=== PATIENT | female | born 1970 | race Caucasian/White ===

== ENCOUNTER 2018-07-18 13:44 | Inpatient (IN) | payer OTHER, MEDICARE ==
[2018-07-18] MEDS ORDERED: LORAZEPAM 1 MG TABLET PO ONE (14:33)
--- NOTE | 2018-07-18 14:35 | ER Document Report ---
ED Medical Screen (RME) - General Chief Complaint: Shortness Of Breath Stated Complaint: SHORTNESS OF BREATH Time Seen by Provider: 07/18/18 14:24 TRAVEL OUTSIDE OF THE [place] IN LAST 30 DAYS: No - HPI Patient complains to provider of: Alcohol withdrawal Past Medical History - Social History Frequency of alcohol use: Heavy Drug Abuse: None Pulmonary Medical History: Reports: Hx Pneumonia Renal/ Medical History: Denies: Hx Peritoneal Dialysis Psychiatric Medical History: Reports: Hx Anxiety, Hx Depression, Hx Post Traumatic Stress Disorder Physical Exam - Vital signs Vitals: Temp Pulse Resp BP Pulse Ox 98.4 F 107 H 20 135/108 H 96 07/18/18 13:56 07/18/18 13:56 07/18/18 13:56 07/18/18 13:56 07/18/18 13:56 Course - Re-evaluation Re-evalutation: 07/18/18 14:34 47-year-old female presents for evaluation of detox as 1/5 a day history of alcoholism, has been doing such for several months has multiple attempts in the past at detox has had multiple episodes of withdrawal seizures in the past requiring hospitalization as well as intubation. She has had pneumonia as well. She has multiple medical problems in addition including psychiatric issues which she is uncertain of the exact diagnoses. She requests detox at this time. We will plan for [place] scoring, cardiac monitoring, administration of Ativan initially. We will plan for patient to be monitored and evaluated through the main emergency department. - Vital Signs Vital signs: Temp Pulse Resp BP Pulse Ox 98.4 F 107 H 20 135/108 H 96 07/18/18 13:56 07/18/18 13:56 07/18/18 13:56 07/18/18 13:56 07/18/18 13:56
[2018-07-18] MEDS ORDERED: NORMAL SALINE 1000 ML 1,000 ML IV ONE (15:57)
[2018-07-18] MEDS ORDERED: IPRATROPIUM/ALBUTEROL 0.5-2.5 MG/3 ML AMPUL NEB ONE ×2 (15:58→18:14)
[2018-07-18] MEDS ORDERED: METHYLPREDNISOLONE INJ 125 MG/2 ML SDV IV ONE (15:58)
[2018-07-18] MEDS ORDERED: MAGNESIUM SULFATE/D5W 1 GM/100 ML RTUPB IV ONE (15:58)
--- NOTE | 2018-07-18 15:59 | ER Document Report ---
ED General - General Chief Complaint: Shortness Of Breath Stated Complaint: SHORTNESS OF BREATH Time Seen by Provider: 07/18/18 14:24 Mode of Arrival: Ambulatory Information source: Patient Notes: This is a 47-year-old female with a history of bilateral pneumonia with hypoxic respiratory failure (January 2018 [place]), 1 pack per day smoking, alcohol abuse, who presents to the emergency room with chest pain while walking, shortness of breath and wheezing. Patient does states she feels like she is going into withdrawals because she stopped drinking. She states that she does have a history of alcohol withdrawal seizures. She also states that she does not want to drink anymore. TRAVEL OUTSIDE OF THE [place] IN LAST 30 DAYS: No - HPI Onset: Just prior to arrival Onset/Duration: Gradual Quality of pain: No pain Severity: None Pain Level: Denies Associated symptoms: Nonproductive cough, Shortness of breath. denies: Chest pain, Fever Exacerbated by: Denies Relieved by: Denies Similar symptoms previously: Yes Recently seen / treated by doctor: No - Related Data Allergies/Adverse Reactions: No Known Allergies Allergy (Verified 07/18/18 19:41) Past Medical History - General Information source: Patient - Social History Smoking Status: Current Every Day Smoker Cigarette use (# per day): Yes - 1 pack per day Chew tobacco use (# tins/day): No Smoking Education Provided: No Frequency of alcohol use: Heavy Drug Abuse: None Lives with: Family Family History: Reviewed & Not Pertinent Patient has suicidal ideation: No Patient has homicidal ideation: No Pulmonary Medical History: Reports: Hx Pneumonia Renal/ Medical History: Denies: Hx Peritoneal Dialysis Psychiatric Medical History: Reports: Hx Anxiety, Hx Depression, Hx Post Traumatic Stress Disorder Past Surgical History: Reports: Other - Foot surgery (bunions) Review of Systems - Review of Systems Constitutional: denies: Chills, Fever EENT: denies: Nose discharge, Sinus pressure, Sinus discharge Cardiovascular: denies: Chest pain, Palpitations, Heart racing Respiratory: Short of breath, Wheezing Gastrointestinal: denies: Abdomen distended, Abdominal pain, Vomiting Genitourinary: No symptoms reported Female Genitourinary: No symptoms reported Musculoskeletal: No symptoms reported Skin: No symptoms reported Hematologic/Lymphatic: No symptoms reported Neurological/Psychological: Anxiety, Other - Tremulousness. denies: Confusion, Paralysis, Seizure Physical Exam - Vital signs Vitals: Temp Pulse Resp BP Pulse Ox 98.4 F 107 H 20 135/108 H 96 07/18/18 13:56 07/18/18 13:56 07/18/18 13:56 07/18/18 13:56 07/18/18 13:56 Notes: Physical exam: GENERAL: 47-year-old female, alert and oriented 3, bilateral wheezing, he is tremulous and hypertensive (diastolic 108), tachycardic (107) HEAD: Atraumatic, normocephalic. EYES: Pupils equal round and reactive to light, extraocular movements intact, sclera anicteric, conjunctiva are normal. ENT: TMs normal, nares patent, oropharynx clear without exudates. Moist mucous membranes. NECK: Normal range of motion, supple without obvious mass or JVD. LUNGS: Bilateral wheezing with accessory muscle use HEART: Regular rate and rhythm without murmurs, rubs or gallops. ABDOMEN: Soft, normoactive bowel sounds. No tenderness to palpation. No guarding, no rebound. No masses appreciated. EXTREMITIES: Normal range of motion, no pitting or edema. No clubbing or cyanosis. NEUROLOGICAL: She is tremulous. Cranial nerves II through XII grossly intact. Normal speech, moving all extremities. PSYCH: Normal mood, normal affect. SKIN: Warm, Dry, normal turgor, no rashes or lesions noted. Course - Vital Signs Vital signs: Temp Pulse Resp BP Pulse Ox 98.4 F 107 H 19 126/102 H 94 07/18/18 13:56 07/18/18 13:56 07/18/18 22:01 07/18/18 22:01 07/18/18 22:01 - Laboratory Result Diagrams: 07/18/18 16:29 07/18/18 16:29 Laboratory results interpreted by me: 07/18/18 07/18/18 07/18/18 16:29 16:29 19:10 Hgb 11.4 L Hct 35.2 L MCV 74 L MCH 24.0 L RDW 18.6 H Potassium 3.2 L Glucose 57 L AST 75 H Total Protein 8.4 H Urine Ketones 20 H Urine Blood MODERATE H Salicylates < 1.0 L Acetaminophen < 10 L - Diagnostic Test Radiology reviewed: Image reviewed, Reports reviewed - Tonic interstitial changes. No obvious infiltrate. Discharge - Discharge Clinical Impression: Acute alcohol withdrawal, COPD exacerbation Condition: Stable Disposition: HOME, SELF-CARE Admitting Provider: Hospitalist [place] [facility] Admitted: Telemetry
[2018-07-18] MEDS ORDERED: ACETAMINOPHEN 325 MG TABLET PO ONE (16:21)
[2018-07-18] MEDS ORDERED: LORAZEPAM INJ 2 MG/1 ML VIAL IV ONE ×2 (16:21→20:51)
[2018-07-18 16:59] LABS: ABSOLUTE BASOPHILS # (AUTO) 0.1 10^3/uL (0.0-0.2); ABSOLUTE LYMPHOCYTES (AUTO) 1.9 10^3/uL (0.5-4.7); ABSOLUTE MONOCYTES (AUTO) 0.6 10^3/uL (0.1-1.4); ABSOLUTE NEUT (AUTO) 7.9 10^3/uL (1.7-8.2); BASOPHILS % (AUTO) 1.3 % (0-2); EOSINOPHILS % (AUTO) 0.4 % (0-6); HEMATOCRIT 35.2 % (36.0-47.0); HEMOGLOBIN 11.4 g/dL (12.0-15.5); LYMPHOCYTES % (AUTO) 17.7 % (13-45); MEAN CORPUSCULAR HGB CONC 32.4 g/dL (32.0-36.0); MEAN CORPUSCULAR VOLUME 74 fl (80-97); MONOCYTES % (AUTO) 5.7 % (3-13); PLATELET COUNT 369 10^3/uL (150-450); RED BLOOD COUNT 4.75 10^6/uL (3.72-5.28); RED CELL DISTRIBUTION WIDTH 18.6 % (11.5-14.0); SEGMENTED NEUTROPHILS % (AUTO) 74.9 % (42-78); TOTAL CELLS COUNTED % (AUTO) 100 %; WHITE BLOOD COUNT 10.5 10^3/uL (4.0-10.5)
[2018-07-18 17:17] LABS: ALANINE AMINOTRANSFERASE 39 U/L (9-52); ALBUMIN 4.3 g/dL (3.5-5.0); ALCOHOL 58 mg/dL (NONE DETECTED); ALKALINE PHOSPHATASE 97 U/L (38-126); ANION GAP 18 (5-19); ASPARTATE AMINO TRANSFERASE 75 U/L (14-36); BILIRUBIN,DIRECT 0.3 mg/dL (0.0-0.4); BILIRUBIN,TOTAL 0.3 mg/dL (0.2-1.3); BLOOD UREA NITROGEN 13 mg/dL (7-20); CARBON DIOXIDE 23 mmol/L (22-30); CHLORIDE 100 mmol/L (98-107); CREATINE KINASE 33 U/L (30-135); GLUCOSE 57 mg/dL (75-110); POTASSIUM 3.2 mmol/L (3.6-5.0); TOTAL PROTEIN 8.4 g/dL (6.3-8.2)
[2018-07-18 17:20] LABS: ACETAMINOPHEN < 10 ug/mL (10-30); SALICYLATE < 1.0 mg/dL (2.0-20.0)
[2018-07-18 17:26] LABS: CREATINE KINASE MB 0.85 ng/mL (<4.55)
[2018-07-18 17:30] LABS: TROPONIN I < 0.012 ng/mL
[2018-07-18] MEDS ORDERED: POTASSIUM CHLORIDE 20 MEQ/15 ML UDCUP PO ONE (17:33)
[2018-07-18] MEDS ORDERED: NICOTINE 14 MG/24 HR PATCH.TD24 TD ONE (20:06)
[2018-07-18] MEDS ORDERED: PROPRANOLOL HCL 20 MG TABLET PO ONE (20:06)
[2018-07-18] MEDS ORDERED: SERTRALINE HCL 50 MG TABLET PO ONE (20:06)
[2018-07-18] MEDS ORDERED: GABAPENTIN 300 MG CAPSULE PO ONE (20:06)
[2018-07-18 20:35] LABS: APPEARANCE,URINE TURBID; BILIRUBIN,URINE NEGATIVE (NEGATIVE); COLOR,URINE YELLOW; GLUCOSE, URINE NEGATIVE (NEGATIVE); KETONES,URINE 20 mg/dL (NEGATIVE); LEUKOCYTE ESTERASE,URINE NEGATIVE (NEGATIVE); NITRITE,URINE NEGATIVE (NEGATIVE); PROTEIN,URINE NEGATIVE (NEGATIVE); URINE SPECIFIC GRAVITY 1.024; UROBILINOGEN,URINE NEGATIVE mg/dL (<2.0)
--- NOTE | 2018-07-18 20:41 | RADIOLOGY REPORT (SQ) ---
EXAM DESCRIPTION: CHEST SINGLE VIEW COMPLETED DATE/TIME: 07/18/2018 8:22 pm REASON FOR STUDY: sob COMPARISON: None. EXAM PARAMETERS: NUMBER OF VIEWS: One view. TECHNIQUE: Single frontal radiographic view of the chest acquired. RADIATION DOSE: NA LIMITATIONS: None. FINDINGS: LUNGS AND PLEURA: Prominent interstitial markings particularly in the lower lobes. No lob ar infiltrates, masses or pneumothorax. No pleural effusion. MEDIASTINUM AND HILAR STRUCTURES: No masses. Contour normal. HEART AND VASCULAR STRUCTURES: Heart normal in size. Normal vasculature. BONES: No acute findings. HARDWARE: None in the chest. OTHER: No other significant finding. IMPRESSION: PROMINENT INTERSTITIAL MARKINGS PROBABLY DUE TO SCARRING ALTHOUGH A COMPONENT OF INTERST ITIAL EDEMA MAY BE PRESENT. TECHNICAL DOCUMENTATION: JOB ID: [id number] [employer]formerly [email or web address])- All Rights Reserved Reading location - IP/workstation name: [email or web address]
--- NOTE | 2018-07-18 20:42 | EKG REPORT ---
SEVERITY:- BORDERLINE ECG - SINUS RHYTHM PROBABLE LEFT ATRIAL ABNORMALITY : Confirmed by: Cayla Valdovinos 18-Jul-2018 17:41:40
[2018-07-18 20:49] LABS: URINE AMPHETAMINES SCREEN NEGATIVE; URINE BARBITURATES SCREEN NEGATIVE; URINE BENZODIAZEPINES SCREEN NEGATIVE; URINE COCAINE SCREEN NEGATIVE; URINE MARIJUANA (THC) SCREEN UNCONFIRMED POSITIVE; URINE METHADONE SCREEN NEGATIVE; URINE PHENCYCLIDINE SCREEN NEGATIVE
[2018-07-18] MEDS ORDERED: AZITHROMYCIN 250 MG TABLET PO ONE (22:00)
[2018-07-18] MEDS: PANTOPRAZOLE SODIUM 40 MG VIAL IV SCH (23:43)
[2018-07-18] MEDS: THIAMINE HCL 500 MG in NORMAL SALINE 250 ML IV SCH (23:44)
[2018-07-19] MEDS: THIAMINE HCL 500 MG in NORMAL SALINE 250 ML IV SCH ×3 (06:05→22:42)
[2018-07-19] MEDS: POTASSI CL 20 MEQ/NS 1L 1,000 ML IV PRN ×2 (06:15→19:02)
[2018-07-19] MEDS: LORAZEPAM INJ 2 MG/1 ML VIAL IV PRN ×4 (06:15→19:54)
--- NOTE | 2018-07-19 06:16 | PDOC H&P ---
History of Present Illness Admission Date/PCP: 07/18/18 21:45 RAHUL LAUGHLIN MD Patient complains of: alc withdrawal History of Present Illness: SHAMIKA SINGLETON is a 47 year old female presents to the emergency department secondary to alcohol withdrawal. Patient has no past medical history of substance abuse, smokes 1 pack cigarettes per day. Presented to the emergency department initially with shortness of breath and wheezing. Has alcoholic beverage was 1 day ago. Patient has a known past medical history of reactive airway disease and a history of pneumonia. Also has a history of alcohol withdrawal seizures. Patient acknowledges that she wants to quit drinking. Past Medical History Pulmonary Medical History: Reports: Pneumonia Psychiatric Medical History: Reports: Alcohol Dependency, Depression, Post Traumatic Stress Disorder Past Surgical History Past Surgical History: Reports: Other - Foot surgery (bunions) Social History Information Source: Patient Lives with: Family Smoking Status: Current Every Day Smoker Frequency of Alcohol Use: Heavy Hx Recreational Drug Use: No Hx Prescription Drug Abuse: No Family History Family History: Reviewed & Not Pertinent Parental Family History Reviewed: Yes Children Family History Reviewed: Yes Sibling(s) Family History Reviewed.: Yes Medication/Allergy Allergies/Adverse Reactions: No Known Allergies Allergy (Verified 07/18/18 19:41) Review of Systems Constitutional: ABSENT: chills, fever(s), headache(s), weight gain, weight loss Eyes: ABSENT: visual disturbances Ears: ABSENT: hearing changes Cardiovascular: ABSENT: chest pain, dyspnea on exertion, edema, orthropnea, palpitations Respiratory: PRESENT: dyspnea. ABSENT: cough, hemoptysis Gastrointestinal: ABSENT: abdominal pain, constipation, diarrhea, hematemesis, hematochezia, nausea, vomiting Genitourinary: ABSENT: dysuria, hematuria Musculoskeletal: ABSENT: joint swelling Integumentary: ABSENT: rash, wounds Neurological: PRESENT: tremor(s). ABSENT: abnormal gait, abnormal speech, confusion, dizziness, focal weakness, syncope Psychiatric: ABSENT: anxiety, depression, homidical ideation, suicidal ideation Endocrine: ABSENT: cold intolerance, heat intolerance, polydipsia, polyuria Hematologic/Lymphatic: ABSENT: easy bleeding, easy bruising Physical Exam Vital Signs: Temp Pulse Resp BP Pulse Ox 98.4 F 107 H 19 128/77 H 92 07/18/18 13:56 07/18/18 13:56 07/19/18 05:01 07/19/18 05:01 07/19/18 05:01 Intake & Output 07/17/18 07/18/18 07/19/18 06:59 06:59 06:59 Intake Total 255 Balance 255 General appearance: PRESENT: no acute distress, well-developed, well-nourished Head exam: PRESENT: atraumatic, normocephalic Eye exam: PRESENT: conjunctiva pink, EOMI, PERRLA. ABSENT: scleral icterus Ear exam: PRESENT: normal external ear exam Mouth exam: PRESENT: moist, tongue midline Neck exam: ABSENT: carotid bruit, JVD, lymphadenopathy, thyromegaly Respiratory exam: PRESENT: clear to auscultation camilo. ABSENT: rales, rhonchi, wheezes Cardiovascular exam: PRESENT: RRR. ABSENT: diastolic murmur, rubs, systolic murmur Pulses: PRESENT: normal dorsalis pedis pul Vascular exam: PRESENT: normal capillary refill GI/Abdominal exam: PRESENT: normal bowel sounds, soft. ABSENT: distended, guarding, mass, organolmegaly, rebound, tenderness Rectal exam: PRESENT: deferred Extremities exam: PRESENT: full ROM. ABSENT: calf tenderness, clubbing, pedal edema Neurological exam: PRESENT: alert, awake, oriented to person, oriented to place , oriented to time, oriented to situation, CN II-XII grossly intact. ABSENT: motor sensory deficit Psychiatric exam: PRESENT: appropriate affect, normal mood. ABSENT: homicidal ideation, suicidal ideation Skin exam: PRESENT: dry, intact, warm. ABSENT: cyanosis, rash Results Impressions: Chest X-Ray 07/18/18 20:05 IMPRESSION: PROMINENT INTERSTITIAL MARKINGS PROBABLY DUE TO SCARRING ALTHOUGH A COMPONENT OF INTERSTITIAL EDEMA MAY BE PRESENT. Assessment & Plan - Diagnosis (1) Alcohol withdrawal Qualifiers: Complication of substance-induced condition: with unspecified complication Qualified Code(s): F10.239 - Alcohol dependence with withdrawal, unspecified Is this a current diagnosis for this admission?: Yes (2) Acute bronchitis Qualifiers: Bronchitis organism: unspecified organism Qualified Code(s): J20.9 - Acute bronchitis, unspecified Is this a current diagnosis for this admission?: Yes (3) Tobacco abuse Is this a current diagnosis for this admission?: Yes Plan: Patient to be admitted for alcohol withdrawal. Will monitor on telemetry. Continue with alcohol withdrawal protocol, Ativan 2 mg IV to be given as needed. Patient on azithromycin secondary to underlying acute bronchitis. Continue with Solu-Medrol 40 mg IV every 8 hours, DuoNeb's every 3 as needed. Tylenol, ibuprofen as needed pain. Smoking cessation highly encouraged. We will continue to monitor patient closely.
[2018-07-19 06:47] LABS: ALANINE AMINOTRANSFERASE 41 U/L (9-52); ALBUMIN 4.3 g/dL (3.5-5.0); ALKALINE PHOSPHATASE 96 U/L (38-126); ANION GAP 12 (5-19); ASPARTATE AMINO TRANSFERASE 45 U/L (14-36); BILIRUBIN,DIRECT 0.3 mg/dL (0.0-0.4); BILIRUBIN,TOTAL 0.5 mg/dL (0.2-1.3); BLOOD UREA NITROGEN 14 mg/dL (7-20); CALCIUM 9.6 mg/dL (8.4-10.2); CARBON DIOXIDE 24 mmol/L (22-30); CHLORIDE 104 mmol/L (98-107); GLUCOSE 110 mg/dL (75-110); PHOSPHORUS 3.1 mg/dL (2.5-4.5); SODIUM 140.2 mmol/L (137-145); TOTAL PROTEIN 8.2 g/dL (6.3-8.2)
[2018-07-19] MEDS ORDERED: METHYLPREDNISOLONE INJ 40 MG/1 ML SDV IV ONE (07:00)
[2018-07-19 07:09] LABS: POTASSIUM 4.9 mmol/L (3.6-5.0)
[2018-07-19 07:30] LABS: ABSOLUTE BASOPHILS # (AUTO) 0.1 10^3/uL (0.0-0.2); ABSOLUTE LYMPHOCYTES (AUTO) 1.2 10^3/uL (0.5-4.7); ABSOLUTE MONOCYTES (AUTO) 0.3 10^3/uL (0.1-1.4); ABSOLUTE NEUT (AUTO) 5.4 10^3/uL (1.7-8.2); BASOPHILS % (AUTO) 0.9 % (0-2); HEMATOCRIT 37.5 % (36.0-47.0); HEMOGLOBIN 12.4 g/dL (12.0-15.5); LYMPHOCYTES % (AUTO) 17.5 % (13-45); MEAN CORPUSCULAR HEMOGLOBIN 24.2 pg (27.0-33.4); MEAN CORPUSCULAR HGB CONC 33.2 g/dL (32.0-36.0); MEAN CORPUSCULAR VOLUME 73 fl (80-97); MONOCYTES % (AUTO) 4.9 % (3-13); PLATELET COUNT 421 10^3/uL (150-450); RED BLOOD COUNT 5.14 10^6/uL (3.72-5.28); RED CELL DISTRIBUTION WIDTH 18.3 % (11.5-14.0); SEGMENTED NEUTROPHILS % (AUTO) 76.7 % (42-78); TOTAL CELLS COUNTED % (AUTO) 100 %
[2018-07-19] MEDS: IPRATROPIUM/ALBUTEROL 0.5-2.5 MG/3 ML AMPUL NEB PRN ×2 (07:52→19:40)
[2018-07-19] MEDS: ACETAMINOPHEN 325 MG TABLET PO PRN (07:52)
[2018-07-19] MEDS ORDERED: NICOTINE 14 MG/24 HR PATCH.TD24 TD ONE (09:54)
[2018-07-19] MEDS: ENOXAPARIN SODIUM INJ 40 MG/0.4 ML DISP.SYRIN SUBCUT SCH (11:11)
[2018-07-19] MEDS: PANTOPRAZOLE SODIUM 40 MG VIAL IV SCH ×2 (11:11→22:40)
[2018-07-19] MEDS ORDERED: PROPRANOLOL HCL 20 MG TABLET PO PRN (13:42)
[2018-07-19] MEDS ORDERED: MIRTAZAPINE PO SCH (13:45)
[2018-07-19] MEDS ORDERED: (PENDING PHARMACY ID) (Sertraline Hcl [Zoloft] 200 MG) PO SCH (13:45)
[2018-07-19] MEDS: HYDROXYZINE PAMOATE 50 MG CAPSULE PO PRN (15:34)
[2018-07-19] MEDS: METHYLPREDNISOLONE INJ 40 MG/1 ML SDV IV SCH ×2 (15:34→22:40)
[2018-07-19] MEDS: TOPIRAMATE 25 MG TABLET PO SCH ×2 (18:46→22:46)
[2018-07-19] MEDS: SERTRALINE HCL 50 MG TABLET PO SCH (18:46)
[2018-07-19] MEDS: GABAPENTIN 400 MG CAPSULE PO SCH (19:00)
[2018-07-19] MEDS ORDERED: TOPIRAMATE 25 MG TABLET ONE (21:37)
[2018-07-19] MEDS ORDERED: THIAMINE HCL INJ 200 MG/2 ML VIAL ONE ×2 (21:38→22:07)
[2018-07-19] MEDS: AZITHROMYCIN 250 MG TABLET PO SCH (22:45)
[2018-07-19] MEDS: MELATONIN 3 MG TABLET PO SCH (22:46)
[2018-07-20] MEDS: GABAPENTIN 400 MG CAPSULE PO SCH ×4 (01:05→17:40)
[2018-07-20] MEDS: LORAZEPAM INJ 2 MG/1 ML VIAL IV PRN ×4 (03:52→20:48)
[2018-07-20] MEDS: POTASSI CL 20 MEQ/NS 1L 1,000 ML IV PRN (04:29)
--- NOTE | 2018-07-20 05:49 | PDOC PROGRESS REPORT ---
Subjective Progress Note for:: 07/19/18 Subjective:: The patient is tremulous, but feels her breathing has improved. Reason For Visit: ALCOHOL WITHDRAWAL, COPD EXA Physical Exam Vital Signs: Temp Pulse Resp BP Pulse Ox 97.6 F 56 L 17 124/67 99 07/20/18 03:45 07/20/18 03:45 07/20/18 03:45 07/20/18 03:45 07/20/18 03:45 Intake & Output 07/18/18 07/19/18 07/20/18 06:59 06:59 06:59 Intake Total 255 3602 Output Total 850 Balance 255 2752 Weight 88.3 kg General appearance: PRESENT: no acute distress, cooperative Respiratory exam: PRESENT: rhonchi, wheezes, other - No increased work of breathing.. ABSENT: rales Cardiovascular exam: PRESENT: RRR. ABSENT: gallop, rubs, systolic murmur Pulses: PRESENT: normal radial pulses, normal dorsalis pedis pul GI/Abdominal exam: PRESENT: normal bowel sounds, soft. ABSENT: hernia, mass, tenderness Extremities exam: ABSENT: clubbing, full ROM, pedal edema, tenderness Musculoskeletal exam: ABSENT: deformity, dislocation, tenderness Neurological exam: PRESENT: alert, awake, oriented to person, oriented to place , oriented to time, oriented to situation, CN II-XII grossly intact, other - Tremulous. ABSENT: motor sensory deficit Psychiatric exam: PRESENT: anxious Skin exam: PRESENT: dry, intact, warm Results Laboratory Results: 07/19/18 06:15 07/19/18 06:15 07/19/18 07/19/18 06:15 06:15 WBC 7.0 RBC 5.14 Hgb 12.4 Hct 37.5 MCV 73 L MCH 24.2 L MCHC 33.2 RDW 18.3 H Plt Count 421 Seg Neutrophils % 76.7 Lymphocytes % 17.5 Monocytes % 4.9 Eosinophils % 0.0 Basophils % 0.9 Absolute Neutrophils 5.4 Absolute Lymphocytes 1.2 Absolute Monocytes 0.3 Absolute Eosinophils 0.0 Absolute Basophils 0.1 Sodium 140.2 Potassium 4.9 D Chloride 104 Carbon Dioxide 24 Anion Gap 12 BUN 14 Creatinine 0.55 Est GFR ( Amer) > 60 Est GFR (Non-Af Amer) > 60 Glucose 110 Calcium 9.6 Phosphorus 3.1 Magnesium 2.1 Total Bilirubin 0.5 AST 45 H ALT 41 Alkaline Phosphatase 96 Total Protein 8.2 Albumin 4.3 Impressions: Chest X-Ray 07/18/18 20:05 IMPRESSION: PROMINENT INTERSTITIAL MARKINGS PROBABLY DUE TO SCARRING ALTHOUGH A COMPONENT OF INTERSTITIAL EDEMA MAY BE PRESENT. Assessment & Plan - Diagnosis (1) Acute bronchitis Qualifiers: Bronchitis organism: unspecified organism Qualified Code(s): J20.9 - Acute bronchitis, unspecified Is this a current diagnosis for this admission?: Yes (2) Alcohol withdrawal Qualifiers: Complication of substance-induced condition: with unspecified complication Qualified Code(s): F10.239 - Alcohol dependence with withdrawal, unspecified Is this a current diagnosis for this admission?: Yes (3) Tobacco abuse Is this a current diagnosis for this admission?: Yes - Time Time Spent with patient: 25-34 minutes Medications reviewed and adjusted accordingly: Yes
[2018-07-20] MEDS: METHYLPREDNISOLONE INJ 40 MG/1 ML SDV IV SCH ×3 (05:59→22:07)
[2018-07-20] MEDS ORDERED: THIAMINE HCL 500 MG in NORMAL SALINE 250 ML IV SCH (08:00)
[2018-07-20] MEDS: PANTOPRAZOLE SODIUM 40 MG VIAL IV SCH ×2 (10:10→22:07)
[2018-07-20] MEDS: ENOXAPARIN SODIUM INJ 40 MG/0.4 ML DISP.SYRIN SUBCUT SCH (10:11)
[2018-07-20] MEDS: THIAMINE HCL 500 MG in NORMAL SALINE 250 ML IV SCH ×2 (10:20→17:40)
[2018-07-20] MEDS: MIRTAZAPINE 15 MG TABLET PO SCH (10:34)
[2018-07-20] MEDS: SERTRALINE HCL 50 MG TABLET PO SCH (10:46)
[2018-07-20] MEDS ORDERED: TOPIRAMATE 25 MG TABLET PO ONE (11:30)
[2018-07-20] MEDS: NICOTINE 21 MG/24 HR PATCH.TD24 TD SCH (14:19)
[2018-07-20] MEDS: TOPIRAMATE 25 MG TABLET PO SCH ×2 (15:59→22:14)
[2018-07-20] MEDS: ACETAMINOPHEN 325 MG TABLET PO PRN (16:04)
--- NOTE | 2018-07-20 17:18 | PDOC PROGRESS REPORT ---
Subjective Progress Note for:: 07/20/18 Subjective:: The patient is resting quietly. No new complaints. Audible wheezes upon entering the room. Reason For Visit: ALCOHOL WITHDRAWAL, COPD EXA Physical Exam Vital Signs: Temp Pulse Resp BP Pulse Ox 98.2 F 84 18 121/95 H 97 07/20/18 16:00 07/20/18 16:00 07/20/18 16:00 07/20/18 16:00 07/20/18 16:00 Intake & Output 07/19/18 07/20/18 07/21/18 06:59 06:59 06:59 Intake Total 255 3602 Output Total 850 Balance 255 2752 Weight 88.3 kg General appearance: PRESENT: no acute distress, other - The patient is somnolent. Respiratory exam: PRESENT: rhonchi, wheezes, other - No increased work of breathing.. ABSENT: rales Cardiovascular exam: PRESENT: RRR, other - No lateral PMI. No thrills.. ABSENT : gallop, rubs, systolic murmur Pulses: PRESENT: normal dorsalis pedis pul GI/Abdominal exam: PRESENT: normal bowel sounds, soft. ABSENT: distended, hernia, mass, tenderness Extremities exam: ABSENT: clubbing, pedal edema, tenderness Musculoskeletal exam: PRESENT: normal inspection. ABSENT: deformity, dislocation, tenderness Neurological exam: PRESENT: alert, other - Sleeping. Not awakened. Skin exam: PRESENT: dry, intact, warm Results Laboratory Results: 07/19/18 06:15 07/19/18 06:15 Impressions: Chest X-Ray 07/18/18 20:05 IMPRESSION: PROMINENT INTERSTITIAL MARKINGS PROBABLY DUE TO SCARRING ALTHOUGH A COMPONENT OF INTERSTITIAL EDEMA MAY BE PRESENT. Assessment & Plan - Diagnosis (1) Acute bronchitis Qualifiers: Bronchitis organism: unspecified organism Qualified Code(s): J20.9 - Acute bronchitis, unspecified Is this a current diagnosis for this admission?: Yes Plan: IV antibiotics, steroids, and nebulizers. (2) Alcohol withdrawal Qualifiers: Complication of substance-induced condition: with unspecified complication Qualified Code(s): F10.239 - Alcohol dependence with withdrawal, unspecified Is this a current diagnosis for this admission?: Yes Plan: ETOH withdrawal protocol. (3) Tobacco abuse Is this a current diagnosis for this admission?: Yes Plan: Nicotine patch. Will consell cessation when patient is able to have this conversation. - Time Time Spent with patient: 25-34 minutes Medications reviewed and adjusted accordingly: Yes
[2018-07-20] MEDS: OXYCODONE-ACETAMINOPHEN 5-325 MG TABLET PO PRN (17:46)
[2018-07-20] MEDS: PROMETHAZINE HCL INJ 25 MG/1 ML VIAL IV PRN (20:48)
[2018-07-20] MEDS ORDERED: MORPHINE SULFATE 10 MG/ML INJ IV ONE (21:00)
[2018-07-20] MEDS: AZITHROMYCIN 250 MG TABLET PO SCH (22:08)
[2018-07-20] MEDS: MELATONIN 3 MG TABLET PO SCH (22:14)
[2018-07-20] MEDS: HYDROXYZINE PAMOATE 50 MG CAPSULE PO PRN (22:15)
[2018-07-21] MEDS: GABAPENTIN 400 MG CAPSULE PO SCH ×5 (00:48→23:54)
[2018-07-21] MEDS: LORAZEPAM INJ 2 MG/1 ML VIAL IV PRN ×5 (00:49→23:54)
[2018-07-21] MEDS: OXYCODONE-ACETAMINOPHEN 5-325 MG TABLET PO PRN ×4 (00:55→23:54)
[2018-07-21] MEDS: THIAMINE HCL 500 MG in NORMAL SALINE 250 ML IV SCH ×3 (03:05→18:49)
[2018-07-21 06:10] LABS: ANION GAP 13 (5-19); BLOOD UREA NITROGEN 13 mg/dL (7-20); CALCIUM 9.1 mg/dL (8.4-10.2); CARBON DIOXIDE 23 mmol/L (22-30); CHLORIDE 105 mmol/L (98-107); GLUCOSE 134 mg/dL (75-110); POTASSIUM 4.5 mmol/L (3.6-5.0); SODIUM 141.3 mmol/L (137-145)
[2018-07-21] MEDS: METHYLPREDNISOLONE INJ 40 MG/1 ML SDV IV SCH ×3 (06:50→22:49)
[2018-07-21] MEDS: PROMETHAZINE HCL INJ 25 MG/1 ML VIAL IV PRN ×3 (08:07→23:54)
[2018-07-21] MEDS ORDERED: MORPHINE SULFATE 10 MG/ML INJ IV ONE (09:08)
[2018-07-21] MEDS ORDERED: PROPRANOLOL HCL 20 MG TABLET PO PRN ×2 (09:08→09:34)
[2018-07-21] MEDS: PANTOPRAZOLE SODIUM 40 MG VIAL IV SCH (09:40)
[2018-07-21] MEDS: MIRTAZAPINE 15 MG TABLET PO SCH (09:43)
[2018-07-21] MEDS: TOPIRAMATE 25 MG TABLET PO SCH ×2 (09:43→22:50)
[2018-07-21] MEDS: ENOXAPARIN SODIUM INJ 40 MG/0.4 ML DISP.SYRIN SUBCUT SCH (09:44)
[2018-07-21] MEDS: SERTRALINE HCL 50 MG TABLET PO SCH (09:50)
[2018-07-21] MEDS ORDERED: HYDRALAZINE HCL 25 MG TABLET PO PRN (10:35)
[2018-07-21] MEDS: NICOTINE 21 MG/24 HR PATCH.TD24 TD SCH (13:35)
[2018-07-21] MEDS: LANSOPRAZOLE 30 MG TAB.RAP.DR PO SCH (17:04)
[2018-07-21] MEDS: AZITHROMYCIN 250 MG TABLET PO SCH (22:49)
[2018-07-21] MEDS: MELATONIN 3 MG TABLET PO SCH (22:49)
[2018-07-22] MEDS: THIAMINE HCL 500 MG in NORMAL SALINE 250 ML IV SCH ×2 (02:16→09:52)
[2018-07-22] MEDS: LORAZEPAM INJ 2 MG/1 ML VIAL IV PRN ×3 (05:57→18:00)
[2018-07-22] MEDS: METHYLPREDNISOLONE INJ 40 MG/1 ML SDV IV SCH (05:57)
[2018-07-22] MEDS: GABAPENTIN 400 MG CAPSULE PO SCH ×2 (05:58→13:26)
[2018-07-22] MEDS: OXYCODONE-ACETAMINOPHEN 5-325 MG TABLET PO PRN ×3 (05:58→18:00)
--- NOTE | 2018-07-22 06:57 | PDOC PROGRESS REPORT ---
Subjective Progress Note for:: 07/21/18 Subjective:: The patient is resting quietly. No new complaints. Reason For Visit: ALCOHOL WITHDRAWAL, COPD EXA Physical Exam Vital Signs: Temp Pulse Resp BP Pulse Ox 98.6 F 64 20 121/72 99 07/22/18 02:30 07/22/18 02:30 07/22/18 02:30 07/22/18 02:30 07/22/18 02:30 Intake & Output 07/20/18 07/21/18 07/22/18 06:59 06:59 06:59 Intake Total 3602 2407 3800 Output Total 850 1610 Balance 2752 797 3800 Weight 88.3 kg 94.3 kg 96.3 kg Results Laboratory Results: 07/19/18 06:15 07/21/18 04:00 Impressions: Chest X-Ray 07/18/18 20:05 IMPRESSION: PROMINENT INTERSTITIAL MARKINGS PROBABLY DUE TO SCARRING ALTHOUGH A COMPONENT OF INTERSTITIAL EDEMA MAY BE PRESENT. Assessment & Plan - Diagnosis (1) Acute bronchitis Qualifiers: Bronchitis organism: unspecified organism Qualified Code(s): J20.9 - Acute bronchitis, unspecified Is this a current diagnosis for this admission?: Yes Plan: IV antibiotics, steroids, and nebulizers. Improving. (2) Alcohol withdrawal Qualifiers: Complication of substance-induced condition: with unspecified complication Qualified Code(s): F10.239 - Alcohol dependence with withdrawal, unspecified Is this a current diagnosis for this admission?: Yes Plan: ETOH withdrawal protocol. Pt is more calm today. (3) Tobacco abuse Is this a current diagnosis for this admission?: Yes - Time Time Spent with patient: 25-34 minutes Anticipated discharge: Home
[2018-07-22] MEDS: LANSOPRAZOLE 30 MG TAB.RAP.DR PO SCH (08:44)
[2018-07-22] MEDS: ENOXAPARIN SODIUM INJ 40 MG/0.4 ML DISP.SYRIN SUBCUT SCH (09:51)
[2018-07-22] MEDS: SERTRALINE HCL 50 MG TABLET PO SCH (09:51)
[2018-07-22] MEDS: ACETAMINOPHEN 325 MG TABLET PO PRN (09:52)
[2018-07-22] MEDS: MIRTAZAPINE 15 MG TABLET PO SCH (09:52)
[2018-07-22] MEDS: TOPIRAMATE 25 MG TABLET PO SCH (13:26)
[2018-07-22] MEDS: NICOTINE 21 MG/24 HR PATCH.TD24 TD SCH (13:28)
--- NOTE | 2018-07-22 14:43 | PDOC DISCHARGE SUMMARY ---
General - Admit/Disc Date/PCP Admission Date/Primary Care Provider: 07/18/18 21:45 RAHUL LAUGHLIN MD Discharge Date: 07/22/18 - Discharge Diagnosis (1) Acute bronchitis Is this a current diagnosis for this admission?: Yes (2) Alcohol withdrawal Is this a current diagnosis for this admission?: Yes (3) Tobacco abuse Is this a current diagnosis for this admission?: Yes - Additional Information Home Medications: Gabapentin [Neurontin] 800 mg PO Q6 07/19/18 Hydroxyzine Pamoate [Vistaril 50 mg Capsule] 50 mg PO Q12HP PRN 07/19/18 Melatonin [Melatonin 3 mg Tablet] 6 mg PO QHS 07/19/18 Mirtazapine [Remeron] 60 mg PO DAILY 07/19/18 Propranolol HCl [Inderal 20 mg Tablet] 20 mg PO Q12HP PRN 07/19/18 Sertraline HCl [Zoloft] 200 mg PO DAILY 07/19/18 Topiramate [Topamax 25 mg Tablet] 25 mg PO Q12 07/19/18 History of Present Illness History of Present Illness: SHAMIKA SINGLETON is a 47 year old female presents to the emergency department secondary to alcohol withdrawal. Patient has no past medical history of substance abuse, smokes 1 pack cigarettes per day. Presented to the emergency department initially with shortness of breath and wheezing. Has alcoholic beverage was 1 day ago. Patient has a known past medical history of reactive airway disease and a history of pneumonia. Also has a history of alcohol withdrawal seizures. Patient acknowledges that she wants to quit drinking. Hospital Course Hospital Course: This is 47 years old female patient with past medical history of alcohol dependence, tobacco dependence and hypertension, admitted with a diagnosis of alcohol withdrawal and acute bronchitis. Patient has been managed with sedative for her alcohol withdrawal and she has been also on Zithromax for acute bronchitis. This morning I seen patient while she is sleeping quietly I awakened her and I told her she is ready for discharge. Her vital signs and labs are within normal limits and patient is good to go. Physical Exam Vital Signs: Temp Pulse Resp BP Pulse Ox 98.8 F 72 16 127/82 H 96 07/22/18 11:28 07/22/18 11:28 07/22/18 11:28 07/22/18 11:28 07/22/18 11:28 Intake & Output 07/21/18 07/22/18 07/23/18 06:59 06:59 06:59 Intake Total 2407 3800 255 Output Total 1610 Balance 797 3800 255 Weight 94.3 kg 96.3 kg General appearance: PRESENT: no acute distress, well-developed, well-nourished Head exam: PRESENT: atraumatic, normocephalic Eye exam: PRESENT: conjunctiva pink, EOMI, PERRLA. ABSENT: scleral icterus Ear exam: PRESENT: normal external ear exam Mouth exam: PRESENT: moist, tongue midline Neck exam: ABSENT: carotid bruit, JVD, lymphadenopathy, thyromegaly Respiratory exam: PRESENT: clear to auscultation camilo. ABSENT: rales, rhonchi, wheezes Cardiovascular exam: PRESENT: RRR. ABSENT: diastolic murmur, rubs, systolic murmur Pulses: PRESENT: normal dorsalis pedis pul Vascular exam: PRESENT: normal capillary refill GI/Abdominal exam: PRESENT: normal bowel sounds, soft. ABSENT: distended, guarding, mass, organolmegaly, rebound, tenderness Rectal exam: PRESENT: deferred Extremities exam: PRESENT: full ROM. ABSENT: calf tenderness, clubbing, pedal edema Neurological exam: PRESENT: alert, awake, oriented to person, oriented to place , oriented to time, oriented to situation, CN II-XII grossly intact. ABSENT: motor sensory deficit Psychiatric exam: PRESENT: appropriate affect, normal mood. ABSENT: homicidal ideation, suicidal ideation Skin exam: PRESENT: dry, intact, warm. ABSENT: cyanosis, rash Results Laboratory Results: 07/19/18 06:15 07/21/18 04:00 Impressions: Chest X-Ray 07/18/18 20:05 IMPRESSION: PROMINENT INTERSTITIAL MARKINGS PROBABLY DUE TO SCARRING ALTHOUGH A COMPONENT OF INTERSTITIAL EDEMA MAY BE PRESENT. Qualifiers - * PATIENT BEING DISCHARGED WITH ANY OF THE FOLLOWING DIAGNOSIS: No
[2018-07-22 16:11] VITALS: BP 126/107
== END 2018-07-22 18:17 | disposition home or self-care (01) | DRG 191 ==
LOC: ER 13:44 → EH 21:45 → 5 07-19 18:05
PROVIDERS: ADMIT Family Medicine; ATTEND Family Medicine
DX: J44.1 Chronic obstructive pulmonary disease with (acute) exacerbation (principal); F10.239 Alcohol dependence with withdrawal, unspecified; J20.9 Acute bronchitis, unspecified; F12.90 Cannabis use, unspecified, uncomplicated; F17.210 Nicotine dependence, cigarettes, uncomplicated; Y90.2 Blood alcohol level of 40-59 mg/100 ml
CPT/HCPCS: 36415; 71045; 80048; 80053; 80307; 81001; 82550; 82553; 83735; 84100; 84484; 84703; 85025; 93005; 93010; 94640; 96365; 96375; 96376; 99285; J1650; J2060; J2270; J2550; J2920; J2930; J3411; J3475; J3480; J3490; J7030; J7050; J7620; S0164

== ENCOUNTER 2018-09-05 10:30 | Emergency (ER) | payer MEDICARE, OTHER ==
--- NOTE | 2018-09-05 10:59 | ER Document Report ---
ED Medical Screen (RME) - General Chief Complaint: Anxiety Stated Complaint: PSYCH CONSULT Time Seen by Provider: 09/05/18 10:57 Mode of Arrival: Ambulatory Information source: Patient TRAVEL OUTSIDE OF THE [place] IN LAST 30 DAYS: No - HPI Patient complains to provider of: psych Onset: Just prior to arrival - pt. states she was senty here by social media marketer for psych consult. Pt. states she isvery anxious. Denies suicidal or homicidal ideation - Related Data Allergies/Adverse Reactions: Penicillins Adverse Reaction (Verified 09/05/18 10:42) Past Medical History Pulmonary Medical History: Reports: Hx Pneumonia Renal/ Medical History: Denies: Hx Peritoneal Dialysis Psychiatric Medical History: Reports: Hx Anxiety, Hx Depression, Hx Post Traumatic Stress Disorder Past Surgical History: Reports: Other - Foot surgery (bunions) Physical Exam - Vital signs Vitals: Temp Pulse Resp BP Pulse Ox 97.4 F 92 16 120/88 H 96 09/05/18 10:50 09/05/18 10:50 09/05/18 10:50 09/05/18 10:50 09/05/18 10:50 Course - Vital Signs Vital signs: Temp Pulse Resp BP Pulse Ox 97.4 F 92 16 120/88 H 96 09/05/18 10:50 09/05/18 10:50 09/05/18 10:50 09/05/18 10:50 09/05/18 10:50 Doctor's Discharge - Discharge Instructions: Anxiety ([facility]) Referrals: RAHUL LAUGHLIN MD [Primary Care Provider] - Follow up as needed
[2018-09-05 11:50] LABS: ABSOLUTE EOSINOPHILS # (AUTO) 0.8 10^3/uL (0.0-0.6); ABSOLUTE LYMPHOCYTES (AUTO) 2.6 10^3/uL (0.5-4.7); ABSOLUTE MONOCYTES (AUTO) 0.5 10^3/uL (0.1-1.4); BASOPHILS % (AUTO) 0.3 % (0-2); EOSINOPHILS % (AUTO) 8.4 % (0-6); HEMATOCRIT 34.2 % (36.0-47.0); LYMPHOCYTES % (AUTO) 26.1 % (13-45); MEAN CORPUSCULAR HEMOGLOBIN 23.2 pg (27.0-33.4); MEAN CORPUSCULAR HGB CONC 32.3 g/dL (32.0-36.0); MEAN CORPUSCULAR VOLUME 72 fl (80-97); MONOCYTES % (AUTO) 4.8 % (3-13); PLATELET COUNT 355 10^3/uL (150-450); RED BLOOD COUNT 4.77 10^6/uL (3.72-5.28); RED CELL DISTRIBUTION WIDTH 19.1 % (11.5-14.0); SEGMENTED NEUTROPHILS % (AUTO) 60.4 % (42-78); TOTAL CELLS COUNTED % (AUTO) 100 %
[2018-09-05 12:11] LABS: ALANINE AMINOTRANSFERASE 11 U/L (9-52); ALBUMIN 4.2 g/dL (3.5-5.0); ALKALINE PHOSPHATASE 96 U/L (38-126); ANION GAP 13 (5-19); ASPARTATE AMINO TRANSFERASE 26 U/L (14-36); BILIRUBIN,DIRECT 0.3 mg/dL (0.0-0.4); BILIRUBIN,TOTAL 0.4 mg/dL (0.2-1.3); BLOOD UREA NITROGEN 12 mg/dL (7-20); CALCIUM 9.6 mg/dL (8.4-10.2); CARBON DIOXIDE 25 mmol/L (22-30); CHLORIDE 105 mmol/L (98-107); GLUCOSE 118 mg/dL (75-110); POTASSIUM 4.1 mmol/L (3.6-5.0); SODIUM 142.6 mmol/L (137-145); TOTAL PROTEIN 8.3 g/dL (6.3-8.2)
[2018-09-05 12:14] LABS: ALCOHOL < 10 mg/dL (NONE DETECTED)
[2018-09-05 12:29] LABS: APPEARANCE,URINE CLEAR; BILIRUBIN,URINE NEGATIVE (NEGATIVE); COLOR,URINE STRAW; GLUCOSE, URINE NEGATIVE (NEGATIVE); KETONES,URINE NEGATIVE (NEGATIVE); LEUKOCYTE ESTERASE,URINE TRACE (NEGATIVE); NITRITE,URINE NEGATIVE (NEGATIVE); PROTEIN,URINE NEGATIVE (NEGATIVE); URINE SPECIFIC GRAVITY 1.009; UROBILINOGEN,URINE NEGATIVE mg/dL (<2.0)
[2018-09-05 12:54] LABS: URINE AMPHETAMINES SCREEN NEGATIVE; URINE BARBITURATES SCREEN NEGATIVE; URINE BENZODIAZEPINES SCREEN NEGATIVE; URINE COCAINE SCREEN NEGATIVE; URINE MARIJUANA (THC) SCREEN NEGATIVE; URINE METHADONE SCREEN NEGATIVE; URINE PHENCYCLIDINE SCREEN NEGATIVE
[2018-09-05] MEDS ORDERED: LORAZEPAM 0.5 MG TABLET PO ONE (13:18)
--- NOTE | 2018-09-05 13:23 | ER Document Report ---
ED General - General Chief Complaint: Anxiety Stated Complaint: PSYCH CONSULT Time Seen by Provider: 09/05/18 10:57 Mode of Arrival: Ambulatory Information source: Patient Notes: 47-year-old female with past medical history of alcohol abuse, post traumatic stress disorder, major depressive disorder, who supposedly has been homeless in a custodial since the previous [place]. Patient states that she has all her medications including hydroxyzine, gabapentin, Zoloft, and Remeron but states some increased anxiety since being displaced. She has an appointment with a psychiatrist this coming Saturday. Patient is presenting here with reference from her cone cleaner to get a short course of Ativan. Patient states she used to take this extensively. Patient denies any suicidal ideations or history of suicide attempts. TRAVEL OUTSIDE OF THE [place] IN LAST 30 DAYS: No - HPI Onset: Other - See above Onset/Duration: Gone Quality of pain: No pain Severity: Mild Pain Level: Denies Associated symptoms: Other - See above Exacerbated by: Denies Relieved by: Denies Similar symptoms previously: No Recently seen / treated by doctor: No - Related Data Allergies/Adverse Reactions: Penicillins Adverse Reaction (Verified 09/05/18 10:42) Past Medical History - General Information source: Patient - Social History Smoking Status: Current Every Day Smoker Chew tobacco use (# tins/day): No Frequency of alcohol use: None Drug Abuse: None Family History: Reviewed & Not Pertinent Patient has suicidal ideation: No Patient has homicidal ideation: No Pulmonary Medical History: Reports: Hx COPD, Hx Pneumonia Renal/ Medical History: Denies: Hx Peritoneal Dialysis Psychiatric Medical History: Reports: Hx Anxiety, Hx Depression, Hx Post Traumatic Stress Disorder Past Surgical History: Reports: Hx Breast Surgery - breast augmentation, Hx Orthopedic Surgery - bunyunectomy, Other - Foot surgery (bunions) Review of Systems - Review of Systems Constitutional: denies: Fever EENT: denies: Eye discharge, Nose discharge Respiratory: denies: Short of breath Gastrointestinal: denies: Vomiting Genitourinary: denies: Dysuria Musculoskeletal: denies: Leg swelling Skin: Other - no hives. denies: Rash Neurological/Psychological: Other - no slurred speech -: Yes All other systems reviewed and negative Physical Exam - Vital signs Vitals: Temp Pulse Resp BP Pulse Ox 97.4 F 92 16 120/88 H 96 09/05/18 10:50 09/05/18 10:50 09/05/18 10:50 09/05/18 10:50 09/05/18 10:50 Notes: Reviewed vital signs and nursing note as charted by RN. CONSTITUTIONAL: Alert and oriented and responds appropriately to questions. Well -appearing; well-nourished HEAD: Normocephalic; atraumatic EYES: PERRL; no nystagmus NECK: Supple without meningismus; non-tender; no cervical lymphadenopathy, no masses CARD: Regular rate and rhythm; no murmurs RESP: Normal chest excursion without splinting or tachypnea; breath sounds clear and equal bilaterally ABD/GI: Normal bowel sounds; non-distended; soft, non-tender BACK: The back appears normal and is non-tender to palpation EXT: Normal ROM in all joints; non-tender to palpation; no edema SKIN: Normal color for age and race; warm; no acute lesions noted NEURO: Moves all extremities equally; Motor and sensory function intact PSYCH: The patient's mood and manner are appropriate. Grooming and personal hygiene are appropriate. Course - Re-evaluation Re-evalutation: 09/05/18 13:22 Labs as recorded. Given the above history and physical examination, in this very calm patient in no acute distress, with an appointment on Saturday, I will attempt to call the protective services case worker/cone cleaner for the patient. Patient does have a history of alcohol abuse. I have expressed to the patient my concern about supplying benzodiazepines. She states she has taken them for an extended period of time and currently does not have them. She states she has an appointment on Saturday. I told her I would only feel comfortable with an extremely short course. She understands this and is accepting. She denies any suicidal or homicidal ideations. - Vital Signs Vital signs: Temp Pulse Resp BP Pulse Ox 97.4 F 92 16 120/88 H 96 09/05/18 10:50 09/05/18 10:50 09/05/18 10:50 09/05/18 10:50 09/05/18 10:50 - Laboratory Result Diagrams: 09/05/18 11:24 09/05/18 11:24 Laboratory results interpreted by me: 09/05/18 09/05/18 09/05/18 11:24 11:24 11:52 Hgb 11.0 L Hct 34.2 L MCV 72 L MCH 23.2 L RDW 19.1 H Eosinophils % 8.4 H Absolute Eosinophils 0.8 H Glucose 118 H Total Protein 8.3 H Ur Leukocyte Esterase TRACE H Discharge - Discharge Clinical Impression: Anxiety Condition: Good Disposition: HOME, SELF-CARE Instructions: Anxiety ([facility]) Prescriptions: Lorazepam [Ativan 0.5 mg Tablet] 0.5 mg PO TID #12 tab Referrals: RAHUL LAUGHLIN MD [Primary Care Provider] - Follow up as needed
[2018-09-05 13:44] VITALS: BP 125/69
== END 2018-09-05 13:46 | disposition home or self-care (01) ==
LOC: ER 10:30
DX: F41.9 Anxiety disorder, unspecified (principal); F43.10 Post-traumatic stress disorder, unspecified; F32.9 Major depressive disorder, single episode, unspecified; Z79.899 Other long term (current) drug therapy; F17.200 Nicotine dependence, unspecified, uncomplicated; J44.9 Chronic obstructive pulmonary disease, unspecified; Z59.0 Homelessness
CPT/HCPCS: 99283; 36415; 80307 ×2; 84443; 85025; 80053; 81001; A9270